=== PATIENT | female | born 1975 | race Caucasian/White ===

== ENCOUNTER 2017-11-30 06:24 | Inpatient (IN) | payer OTHER ==
[~2017-11-30] VITALS: Ht 165.1 cm; Wt 81.6 kg
--- NOTE | ~2017-11-30 | CON ---
[address] [address] CONSULTATION Name: SCOTTY QUINTANILLA Room: [address] IN M.R.#: [id number] Admission: 11/30/17 Attend Phys: Ko Anguiano Discharge: Date of : 71 Report #: [id number] THIS REPORT FOR: //name// CC: ANGELIQUE physician/PCP Amadou Dewey DATE OF SERVICE: 12/08/2017 CHIEF COMPLAINT: Status post incision and drainage right dorsal lateral foot and amputation of right second digit for osteomyelitis. HISTORY OF PRESENT ILLNESS: She is doing well, has OT scheduled for this afternoon. She is weightbearing in a surgical shoe without the need for an assistive device. She is on parenteral cefazolin with good tolerance. Denies constitutional symptoms, has good appetite. Soft tissue cultures from recent incision and drainage surgery are pending with no organisms seen on the Gram stain. Noninvasive arterial Doppler from yesterday shows no significant arterial occlusive disease in either extremity. She has triphasic and biphasic waveforms noted throughout the right lower extremity without any elevated velocities to suggest stenosis. There are no new labs for review. PHYSICAL EXAMINATION: There is a significant decrease in inflammation to the right dorsal lateral foot surrounding the abscess drainage site. The wound has mostly fibrous slough within her intermittent areas of granulation. There is immediate periwound capillary refill. The inflammation is significantly decreased, but still persistent around the periphery. The second toe amputation site is well coapted with no inflammation. No popliteal adenopathy noted. No Homans or Wheat sign in either extremity. IMPRESSION: Status post incision and drainage right foot, status post amputation right second toe, uncontrolled type 2 diabetes mellitus with peripheral neuropathy, status post incision and drainage right wrist. PLAN: Continue daily wound care to include irrigation and packing the wound with Aquacel Ag, covered with ABDs, Kerlix and Edilson. She may ambulate in a surgical shoe for short distances and transfers. The patient to continue with PT and OT. By: 1237 1922Dfrancisco javier Sutton DPM /claudine
[~2017-11-30 06:24] MED LIST: ACETAMINOPHEN-1 EAC1 PO; ACTICIN 5% CREA60 G1 TOP; AUGMENTIN 875-1 EACH; BACTRIM DS TAB1 EACH PO; BACTROBAN22 GM TP; CEPHALEXIN 500500 M3 PO; DIFLUCAN150 MG PO; GLUCOPHAGE500 MG PO; HIBICLENS120 ML TP; HUMALOG100 UNIT/1 SUBQ; HYDROCODON-ACE1 EAC7 PO; HYDROCODONE-AP1 EAC6 PO; IBUPROFEN 800800 M1 PO; KEFLEX500 M1 PO; LANTUS SUBQ; LIDOCAINE VISC100 M1 SWISH&SPIT; NAPROSYN500 M1 PO; NOHOMEMEDICATIONS; NORCO 5-325 TA1 EACH PO; NORFLEX100 MG PO; NOVOLIN N; NOVOLIN R SUBQ; PENICILLIN V P500 MG PO; PENICILLIN VK250 MG PO; PENICILLIN VK500 MG PO; PREDNISONE 20 M20 MG PO; PROMETHAZINE-D120 ML PO; TERAZOL 320 GM VG; TRAMADOL 50 MG50 MG PO; ZPAK PO; ZYVOX600 MG PO
[2017-11-30 06:31] VITALS: BP 125/71
[2017-11-30 07:38] LABS: ABSOLUTE EOSINOPHILS 0.1 thou/uL (0.0-0.7); ABSOLUTE LYMPHOCYTES 1.3 thou/uL (0.8-5.3); ABSOLUTE MONOCYTES 1.2 thou/uL (0.0-1.2); ABSOLUTE NEUTROPHILS 9.5 thou/uL (1.6-8.1); BASOPHILS 0.3 %; EOSINOPHILS 0.4 %; HEMATOCRIT 34.3 % (37.0-47.0); HEMOGLOBIN 11.7 gm/dL (12.0-15.0); LYMPHOCYTES 10.5 %; MCH 29.5 pg (26.0-34.0); MCV 86.9 fL (80.0-100.0); MONOCYTES 10.2 %; MPV 9.2 fl. (7.2-11.1); NUCLEATED RBCS 0 /100WBC; PLATELET COUNT* 182 thou/uL (150-400); POLYS 78.6 %; RBC 3.95 mil/uL (4.20-5.00); RDW-CV 12.8 % (10.5-14.5); WBC 12.1 thou/uL (4.0-11.0)
[2017-11-30 07:46] LABS: CALCIUM 8.3 mg/dL (8.5-10.1); CREATININE 0.6 mg/dL (0.6-1.3); POTASSIUM 3.7 mmol/L (3.5-5.1)
[2017-11-30 07:51] LABS: ALBUMIN 2.5 g/dL (3.4-5.0); TOTAL BILIRUBIN 0.6 mg/dL (<0.1-1.0); TOTAL PROTEIN 7.1 g/dL (6.4-8.2)
--- NOTE | 2017-11-30 09:20 | NUR ---
[facility] NOTIFIED UPON PT RETURN FROM CT. PT CONNECTED TO BP AND PULSE OX MONITORS
[2017-11-30 09:47] VITALS: BP 127/75
[2017-11-30 10:05] VITALS: BP 123/74
[2017-11-30] MEDS ORDERED: NOVOLIN N (13:11)
--- NOTE | 2017-11-30 13:35 | NUR ---
WOUND CARE NOTE: CONSULT RECEIVED FOR RIGHT SECOND TOE WOUND. PATIENT KNOWN TO ME FROM PREVIOUS HOSPITAL STAY WITH RIGHT GREAT TOE WOUND. INCISION TO RIGHT MEDIAL SIDE OF FOOT IS WELL HEALED. PATIENT NOW HAS ULCERATIONS TO HER RIGHT SECOND TOE. PLANTAR SURFACE ULCERATION MEASURES 0.2X0.5X0.3 WITH UNDERMINING CIRCUMFIRENTIALLY 0.3CM. MEDIAL WOUND MEASURES 1X0.5X0.2 WITH A YELLOW MOIST WOUND BED. FOUL ODOR NOTED FROM WOUNDS. VIV-WOUND IS EDEMATOUS AND INFLAMMED. PATIENT STATES THE REDNESS LOOKS BETTER TO HER AND THAT THE WOUNDS USED TO BE BLISTERS, STATES SHE TOOK A SHOWER AND THE BLISTERS RUPTURED. CLEANSED WOUNDS WITH WOUND CLEANSER, OBTAINED CULTURES AND PHOTOGRAPHS. APPLIED AQUACEL AG TO WOUND BEDS AND SECURED WITH 4X4. XRAYS SUGGEST POSSIBLE OSTEO. PALPABLE PEDAL PULSE NOTED AND HAIR GROWTH NOTED. THERE IS ALSO SOME DISCOLORATION TO THE LATERAL ASPECT OF HER FOOT, THIS WAS PHOTOGRAPHED TOO. EDUCATED PATIENT ON DRESSING SELECTION, COMMUNICTED UNDERSTANDING. RECOMMEND HEEL WEIGHT BEARING ONLY ENCOURAGE GOOD NUTRITION/HYDRATION TIGHT BLOOD GLUCOSE CONTROL
[2017-11-30 15:00] VITALS: BP 120/61
--- NOTE | 2017-11-30 18:16 | NUR ---
PATIENT ADM TO FLOOR AT 1000, REPORT FROM [facility]. A&OX4, ROOM AIR, IV LEFT AC FLUIDS INFUSSING. UP WITH ASSISTX1, UNSTEADY GAIT. C/O PAIN TO RIGHT HAND, LEFT HIP, AND RIGHT FOOT. MINIMAL TO PARTIAL RELIEF WITH MEDICATION. PATIENT CHLOSTROPHOBIC, UNABLE TO DO MRI OF RIGHT HAND TODAY. MEDICATION ON BOARD FOR TOMORROW MORNING, ALSO SCHEDULED A MRI OF LEFT HIP. UA NEEDED. NO OTHER CONCERNS AT THIS TIME. APPROPRIATE AND COOPORATIVE WITH CARE.
[2017-11-30 21:50] VITALS: BP 120/61
[2017-11-30] MEDS ORDERED: NOVOLIN N100 UNIT/3 SUBQ (22:00)
[2017-11-30 22:04] LABS: URINE BILIRUBIN NEGATIVE (Negative); URINE BLOOD TRACE (Negative); URINE CLARITY CLEAR; URINE COLOR YELLOW; URINE GLUCOSE-RANDOM 3+ (Negative); URINE LEUKOCYTES NEGATIVE (Negative); URINE NITRITE NEGATIVE (Negative); URINE PROTEIN NEGATIVE (Negative); URINE UROBILINOGEN 0.2 E.U./dl (0.2-1.0)
[2017-11-30 22:05] LABS: URINE KETONES 3+ (Negative)
[2017-11-30 22:15] LABS: SQUAMOUS 0-3 Few /LPF (0-3)
[2017-11-30 22:18] LABS: URINE WBC 0-5 Rare /HPF (0-5)
[2017-11-30 22:19] LABS: BACTERIA 1-9 Few /HPF (None Seen); CASTS None Seen /LPF (None Seen); CRYSTALS None Seen /LPF (None Seen); URINE RBC 3-10 Few /HPF (0-2); YEAST Present (None Seen)
[2017-11-30 22:59] VITALS: BP 128/64
[2017-12-01 04:07] LABS: HEMATOCRIT 32.6 % (37.0-47.0); HEMOGLOBIN 11.1 gm/dL (12.0-15.0); MCH 29.6 pg (26.0-34.0); MCV 87.1 fL (80.0-100.0); MPV 9.3 fl. (7.2-11.1); RBC 3.74 mil/uL (4.20-5.00); RDW-CV 13.1 % (10.5-14.5); WBC 11.3 thou/uL (4.0-11.0)
[2017-12-01 04:22] LABS: ANION GAP 9 mmol/L (7-16); BUN 11 mg/dL (7-18); CALCIUM 8.2 mg/dL (8.5-10.1); CHLORIDE 101 mmol/L (98-107); CO2 22 mmol/L (21-32); CREATININE 0.6 mg/dL (0.6-1.3); GLUCOSE 215 mg/dL (70-99); POTASSIUM 3.6 mmol/L (3.5-5.1); SODIUM 132 mmol/L (136-145)
[2017-12-01 04:40] LABS: CHOLESTEROL 118 mg/dL (<200); HDL CHOLESTEROL 31 mg/dL (>40); LDL CHOLESTEROL 68 mg/dL (<100); TC:HDL 3.8 Ratio (Not establshd); TRIGLYCERIDE 98 mg/dL (<150); VLDL 20 mg/dL (<40)
[2017-12-01 05:04] LABS: SERUM ASSESSMENT Clear
--- NOTE | 2017-12-01 05:19 | NUR ---
ASSESSMENT COMPLETE. PT SLEPT THROUGH THE NIGHT. IV FLUIDS INFUSING. PAIN MEDICATION GIVEN ONCE. PT HAS SURGERY WITH DR HEATON FOR AMPUTATION OF RIGHT SECOND TOE, AND MRI OF RIGHT WRIST/LEFT HIP TODAY. PRN ATIVAN ORDERED FOR MRI. PT GIVEN IV VANC AND CEFEPIME. CENSENTS COMPLETED IN CHART. PT IS FALL RISK, BED ALARM ON. PT IS UP STANDBY ASSIST WITH WALKER TO BATHROOM. SEE ASSESSMENT AND VITALS FOR OTHER DETAILS. CALL LIGHT WITHIN REACH, WILL CONTINUE PLAN OF CARE
[2017-12-01 08:30] VITALS: BP 133/66
--- NOTE | 2017-12-01 09:56 | NUR ---
Pt lives at home with friend. Pt continues to be Medicaid Pending. Pt out of room at time; SW to continue to follow to assist with safe dc planning and provide any resources or referrals if needed.
--- NOTE | 2017-12-01 14:08 | NUR ---
Nutrition: Consult for "DM." Pt has h/o uncontrolled DMII. Admitted with osteomyelitis of Lt foot, Lt partial foot/toe amputation. RX: vanc, insulin. Labs: BG 200s, alb 2.5, prealb 7.8. Pt is NPO currently. She was sound asleep at time of visit, 13:45. RD left DM diet handouts on bedside table. Has RD contact info for pt to call with questions. Consider Mild risk at this time. RD WILL ORDER LIN B.I.D. FOR WOUND HEALING. GOALS: TIGHT BG CONTROL, GOOD PROTEIN INTAKE, MVI FOR WOUND HEALING.
[2017-12-01 14:11] VITALS: BP 125/67
[2017-12-01 14:15] VITALS: BP 120/61
--- NOTE | 2017-12-01 17:28 | EKG ---
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1975 Requested By: Paulo Sutton Order Number: [id number] Mera MD: Sami Benz Measurements Intervals [place] Rate: 109 P: 40 [place]: 140 QRS: 66 QRSD: 92 T: 20 QT: 327 QTc: 441 Interpretive Statements Sinus tachycardia Borderline low voltage, extremity leads Baseline wander in lead(s) II,III,aVR,aVL,aVF Compared to ECG 10/24/2016 08:30:04 Sinus rate has increased Electronically Signed On 12-01-2017 17:28:02 CDT by Sami Benz [email or web address] <ELECTRONICALLY SIGNED> By: Sami Benz MD, FAC 12/01/17 1728 0839 0839 Sami Benz MD, [facility] /EPI
--- NOTE | 2017-12-01 19:34 | NUR ---
PATIENT A&OX4, LETHARGIC. RECIEVED IV PAIN MEDICATION PRIOR TO SHIFT CHANGE, NOTED TO BE INCREASINGLY SLEEPY TRHOUGH MORNING. LISSETH TO HAVE MRI THIS AM OF RT WRIST AND LT HIP, C/O SEVERE CHLOSTROPHOBIA, PHYSICIAN AWARE AND OKAY WITH ATIVAN ADMINISTRATION. POST MEDICATION ADMINISTRATION, ABLE TO TRANSFER TO W/C TO RADIOLOGY, UNABLE TO WAKEN ENOUGHT TO RIDE W/C UP TO ROOM, TRANSFERED BACK TO ROOM VIA CART. LETHARGIC AND HARD TO AROSE POST SURGERY. RUNNING SLIGHT FEVER, MINIMAL RELEIF WITH MEDICATION. NO FURTHER PAIN MEDICATION GIVEN. UP WITH ASSISTX1, WEAK AND UNSTEADY. NO OTHER CONCERNS AT THIS TIME. APPROPRIATE AND COOPORATIVE WITH CARE.
[2017-12-01 20:00] VITALS: BP 99/55
[2017-12-02] VITALS: BP 109/61
[2017-12-02 02:11] LABS: GLYCOHEMOGLOBIN (HGB A1C) 12.9 % (4.8-5.6)
[2017-12-02 04:00] VITALS: BP 129/66
[2017-12-02 05:04] LABS: ABSOLUTE LYMPHOCYTES 1.1 thou/uL (0.8-5.3); ABSOLUTE MONOCYTES 0.9 thou/uL (0.0-1.2); ABSOLUTE NEUTROPHILS 8.5 thou/uL (1.6-8.1); BASOPHILS 0.2 %; EOSINOPHILS 0.4 %; HEMATOCRIT 29.7 % (37.0-47.0); HEMOGLOBIN 10.3 gm/dL (12.0-15.0); LYMPHOCYTES 10.5 %; MCHC 34.7 g/dL (28.0-37.0); MCV 86.4 fL (80.0-100.0); MONOCYTES 8.7 %; NUCLEATED RBCS 0 /100WBC; PLATELET COUNT* 220 thou/uL (150-400); POLYS 80.2 %; RBC 3.44 mil/uL (4.20-5.00); RDW-CV 12.9 % (10.5-14.5); WBC 10.6 thou/uL (4.0-11.0)
[2017-12-02 05:23] LABS: CALCIUM 8.1 mg/dL (8.5-10.1); CREATININE 0.6 mg/dL (0.6-1.3); POTASSIUM 3.5 mmol/L (3.5-5.1)
--- NOTE | 2017-12-02 05:53 | NUR ---
PT SLEPT THIS SHIFT. AWAKENS WITH CARES AND WHEN NEEDING TO GET UP TO GO TO THE BATHROOM. MOANING AND WHIMPERING CO PAIN R WRIST, L HIP AND R FOOT WHEN AWAKE. HS ACCUCHECK 199, INSULIN GIVEN ORDERED. R FOOT BULKY DRSG. UP WITH WALKER WBAT. HYDROCODONE 1 TAB GIVEN ONCE THIS SHIFT FOR PAIN. AM LAB DRAWN. IVF INFUSING PER PUMP LAC, ABX GIVEN ORDERED. ABLE TO USE CALL LITE AND MAKE NEEDS KNOWN. BED ALARM ON FOR SAFETY.
[2017-12-02 08:00] VITALS: BP 126/70
--- NOTE | 2017-12-02 11:50 | CON ---
[address] [address] CONSULTATION Name: SCOTTY QUINTANILLA Room: [address] IN M.R.#: [id number] Admission: 11/30/17 Attend Phys: Ko Anguiano Discharge: Date of : 71 Report #: [id number] THIS REPORT FOR: //name// CC: ANGELIQUE physician/PCP Amadou Dewey DATE OF SERVICE: 11/30/2017 INFECTIOUS DISEASE CONSULTATION ATTENDING PHYSICIAN: Dr. Dewey. REASON FOR EVALUATION: Deep infection involving the right second toe, suspected osteomyelitis in the setting of uncontrolled diabetes mellitus, previous great toe amputation on the right. HISTORY OF PRESENT ILLNESS: Chart reviewed, patient examined. This is a 42-year-old familiar with having seen in the last couple of years. At that point, she was diagnosed with osteomyelitis, underwent great toe amputation. It is difficult to ascertain details of her history. She did present to the Emergency Room with several complaints including having injured her right second toe. This was complicated by increasing inflammation. I believe she does have a degree of peripheral neuropathy, also right hip pain of 4-5 days' duration and again, I do not have details about any antecedent injury, and left wrist pain perhaps as a result of trying to raise herself up. She has been undergoing evaluation including imaging, which showed several abnormalities. Sed rate was elevated at 93. She is scheduled to undergo right second toe amputation. She was empirically started on antimicrobial therapy with ertapenem, ceftriaxone and vancomycin. ALLERGIES: METRONIDAZOLE. CURRENT MEDICATIONS: Include insulin, enoxaparin, morphine, vancomycin, hydrocodone, cefepime. PAST MEDICAL HISTORY: As noted above. No diabetes mellitus, has been quite brittle. SOCIAL HISTORY: Smokes 1/2 pack a day for 20 years total. No ethanol. No illicit drug use. FAMILY HISTORY: Noncontributory. REVIEW OF SYSTEMS: Not reliably obtained. PHYSICAL EXAMINATION: [place] [address] CONSULTATION Name: JESSICA QUINTANILLAJasmeet Corrales Room: [address] IN [facility]#: [id number] Admission: 11/30/17 Attend Phys: Ko Anguiano Discharge: Date of : 71 Report #: [id number] GENERAL: She is quite somnolent, arouses only partially and briefly mumbles, apparently had received recent anxiolytic, appears chronically ill, undernourished. VITAL SIGNS: T-max 100.4, more recently 98.2; pulse 94, respirations 17, blood pressure 120/61. SKIN: Warm. No rashes. NECK: Apparently is supple. LUNGS: Diminished breath sounds. HEART: Regular. Borderline tachycardic. I do not appreciate murmur. ABDOMEN: Soft, nontender, nondistended. There are no peritoneal signs. EXTREMITIES: Right foot, there is significant discoloration involving the second toe. There is a hemorrhagic component. There is moderate degree of inflammation. It is difficult to ascertain the level of pain due to her encephalopathy. GENITOURINARY: Deferred. RECTAL: Deferred. LABORATORY DATA: Initial CBC: White count of 12.1, H and H 11.7 and 34.3, platelets of 182. Electrolytes: Sodium 127, potassium 3.7, chloride 95, bicarbonate is 25, BUN and creatinine 9 and 0.6, anion gap of 7. Blood glucose of 400 and albumin of 2.5, total protein 7.1. Estimated GFR 109, otherwise LFTs unremarkable. Lactic acid 0.7. Sed rate of 93. CRP elevated at 260.41. Negative qualitative UCG. Prealbumin is 7.8. Urinalysis 0-5 white cells. There is yeast present. Blood cultures sterile thus far. MRI of the hip is notable for high-grade tear of the left gluteus medius tendon, bilateral inguinal adenopathy. 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 MRI of the foot, cellulitis, flexor extensor tenosynovitis, possible myositis involving the intramuscular aspect of the hand, no evidence of osteo. ASSESSMENT: Suspected deep infection, possible osteomyelitis involving the right second toe in a patient with uncontrolled diabetes mellitus. Noted plans to proceed with toe amputation. I think this is not unreasonable. We will continue empiric antimicrobial therapy. I think we can pare this down, include vancomycin and potentially cefepime at this point, single dose of fluconazole given the yeast in the urine as well. She remains quite tenuous and concerned about possible nosocomial related infectious complications. We will have to monitor expectantly including a concern about pneumonitis in particular. <ELECTRONICALLY SIGNED> By: Wolfgang Rivera MD 12/02/17 1150 1536 0158Joezra Rivera MD /nt
--- NOTE | 2017-12-02 14:27 | OP ---
[address] [address] OPERATIVE REPORT Name: SCOTTY QUINTANILLA Room: [address] IN .R.#: [id number] Admission: 11/30/17 Attend Phys: Ko Anguiano Discharge: Date of : 71 Report #: [id number] THIS REPORT FOR: //name// CC: ANGELIQUE physician/PCP Amadou Dewey DATE OF SERVICE: 12/02/2017 PREOPERATIVE DIAGNOSIS: Right dorsal wrist tenosynovitis of the fourth, fifth compartment area. 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 SURGERY PERFORMED: Excision and debridement of the fourth and fifth dorsal wrist extensor compartments and arthrotomy of the right wrist joint with lavage. The debridement area consisted excisionally 4 x 6 cm of the tendon. SURGEON: Michele Muller DO. SALES ACCOUNT ASSOCIATE: Dr. Douglas. SECOND CONSTRUCTION MILLWRIGHT: Dr. Harper. ANESTHESIA: General anesthetic. INDICATIONS The patient has been on scheduled antibiotics. She has John drain to the wrist joint dorsally. No complications otherwise. GROSS FINDINGS: Prior to surgery, this patient had had previous toe amputated on the foot secondary to osteomyelitis by Dr. Sutton and at this time she also complained of wrist joint that was painful on the right side. MRI correlated with definitely tenosynovitis. Intraoperative findings correlated with purulence in the wrist joint itself on the right side and extensor tenosynovitis fourth and fifth compartments. ESTIMATED BLOOD LOSS: Approximately 20 mL. DRAIN: The patient has John drain as stated. COMPLICATIONS: No other complications. SPECIMEN: No other specimens except cultures. SURGERY IN DETAIL: This pleasant patient was taken to the operating room and placed on table, given general anesthetic. The patient [place] [address] OPERATIVE REPORT Name: SCOTTY QUINTANILLA Room: [address] IN [facility]#: [id number] Admission: 11/30/17 Attend Phys: Ko Anguiano Discharge: Date of : 71 Report #: [id number] tourniquet placed on the arm, but it was not needed. Chlorhexidine prep and sterile draping was done for the right wrist. Timeout was called and verified. Surgical dorsal incision longitudinal was made over the wrist joint extending to the extensor tendons distally with a 10 blade scalpel through skin and subcutaneous tissues. The fourth compartment was opened up with scissors technique. Extensor tendons demonstrated a lot of synovitis there that was all excised. The fifth compartment was opened up as well, some synovitis small in nature was noted and that was removed and irrigated as well. At this point in time, the wrist joint itself felt very spongy and so we elected to aspirate the wrist joint; pus came out of the wrist joint, so a dorsal arthrotomy was made. The wrist joint had a copious amount of pus within it. It was cultured and then a significant 3000 mL lavage was done to the wrist joint. The patient did have exam consistent with closure of the capsule. Capsule was closed with Monocryl 3-0. A drain was placed in the dorsal wrist compartment. Extensor compartment tissues then were closed with 3-0 Monocryl and running 3-0 nylon to the skin. Xeroform, 4 x 4s, bulky hand dressing to the right wrist was applied, transferred off table, taken to recovery in stable condition. I attest I was present for all critical aspects of surgery. Needle, instrument, and sponge counts correct. <ELECTRONICALLY SIGNED> By: Michele Muller DO 12/02/17 1427 1404 [id number] Muller DO /nt
[2017-12-02 16:36] VITALS: BP 130/70
[2017-12-03] VITALS: BP 121/69
[2017-12-03 04:52] LABS: ABSOLUTE EOSINOPHILS 0.1 thou/uL (0.0-0.7); ABSOLUTE LYMPHOCYTES 1.4 thou/uL (0.8-5.3); ABSOLUTE MONOCYTES 0.9 thou/uL (0.0-1.2); ABSOLUTE NEUTROPHILS 6.9 thou/uL (1.6-8.1); BASOPHILS 0.3 %; EOSINOPHILS 0.7 %; HEMATOCRIT 27.8 % (37.0-47.0); HEMOGLOBIN 9.6 gm/dL (12.0-15.0); LYMPHOCYTES 15.3 %; MCH 29.8 pg (26.0-34.0); MCHC 34.4 g/dL (28.0-37.0); MCV 86.5 fL (80.0-100.0); MONOCYTES 9.7 %; MPV 8.8 fl. (7.2-11.1); NUCLEATED RBCS 0 /100WBC; PLATELET COUNT* 240 thou/uL (150-400); RBC 3.21 mil/uL (4.20-5.00); WBC 9.4 thou/uL (4.0-11.0)
[2017-12-03 06:04] LABS: CALCIUM 7.9 mg/dL (8.5-10.1); CREATININE 0.6 mg/dL (0.6-1.3); POTASSIUM 3.5 mmol/L (3.5-5.1)
--- NOTE | 2017-12-03 07:41 | NUR ---
PT SLEPT OVERNIGHT, AWAKENS WITH CARES. HS ACCUCHECK 138, INSULIN GIVEN ORDERED. HYDROCODONE AND MORPHINE GIVEN PRN FOR CO RWRIST AND R FOOT PAIN. EVAN WRAP BULKY DRESSINGS TO R WRIST AND R FOOT. UP WITH WALKER AND ASSIST TO BR TO VOID. AM LABS. LFA IVF INFUSING PER PUMP, ABX GIVEN ORDERED. VANC TROUGH LOW AND PHARM ADJUSTED VANC DOSE. TEMP MAX 100.6, TYLENOL GIVEN. ABLE TO USE CALL LITE AND MAKE NEEDS KNOWN. ROOM AIR SAT 95%.
[2017-12-03 08:00] VITALS: BP 112/56
[2017-12-03 12:00] VITALS: BP 119/67
--- NOTE | 2017-12-03 16:08 | NUR ---
SHIFT NOTE - PT ASKING FOR PAIN MEDICATIONS MULTIPLE TIMES THIS SHIFT. OK TO GIVE. IV INFUSING NS @ 50ML/HR IN L FA. FAMILY MEMBER AT BEDSIDE THIS SHIFT. CHANGED RIGHT FOOT DRESSING AT 1600 THIS SHIFT. WILL CONTINUE TO MONITOR.
[2017-12-03 16:42] VITALS: BP 114/66
[2017-12-03 20:30] VITALS: BP 133/67
[2017-12-04] VITALS: BP 103/50
[2017-12-04 04:00] VITALS: BP 125/59
--- NOTE | 2017-12-04 05:37 | NUR ---
UP WITH 1 ASSIST AND WALKER TO BATHROOM. ALERT AND ORIENTED X4. DRESSING RIGHT WRIST CLEAN DRY AND INTACT. EDEMA NOTED IN RIGHT HAND FINGERS BUT FINGERS WARM AND PINK WITH GOOD CAPILLARY REFILL. RIGHT HAND ELEVATED ON PILLOW. DRESSING RIGHT FOOT DRY AND INTACT WITH TOES WARM AND PINK WITH GOOD CAPPILLARY REFILL. 0400 V/S SHOWED A TEMPATURE OF 101.9. MESSAGE LEFT FOR CONTINUES ON IV ANTIBIODICS. BED ALARM ON AND CALL LIGHT WITHIN REACH.
[2017-12-04 07:40] VITALS: BP 103/59
[2017-12-04 16:00] VITALS: BP 121/67
--- NOTE | 2017-12-04 18:17 | NUR ---
PATIENT A&OX4, ROOM AIR, IV LEFT FOREARM, POSSITIONAL, FLUIDS INFUSSING. UP WITH ASSISTX1 WB TOLERATED. C/O PIAN TO LT HIP, RIGHT WRIST, AND RIGHT FOOT. RIGHT WRIST PIAN MORE PREVELANT THAN REST. RELIEF WITH MEDICATION. PATIENT FOUND SLEEPING IN ROOM AFTER MEDICATION GIVEN. SHOWERED TODAY. NO OTHER CONCERNS AT THIS TIME. APPROPRIATE AND COOPORATIVE WITH CARE.
[2017-12-04 19:45] VITALS: BP 118/62
[2017-12-05 07:30] VITALS: BP 115/62
--- NOTE | 2017-12-05 07:45 | NUR ---
RECEIVED REPORT AND ASSUMED CARE AT 1900. VSS. ASSESSMENT COMPLETED CHARTED. PT REPORTED PAIN IN R ARM AND R FOOT. PRN MEDICATION ADMIN PER ORDERS, ICE PACKS APPLIED. MEDICATION ADMIN PER EMAR. DISCUSSED PLAN OF CARE WITH PT, VERBALIZED UNDERSTANDING. PT UP WITH ASSIST WITH BRP. ON RA. NO ACUTE CHANGES THROUGH THE NIGHT, HOURLY ROUNDING COMPLETED AND ALL NEEDS MET. NURSING WILL CONTINUE TO MONITOR
[2017-12-05 16:00] VITALS: BP 137/75
--- NOTE | 2017-12-05 17:00 | NUR ---
PATEINT A&OX4, ROOM AIR, IV LEFT FOREARM FLUIDS INFUSSING. UP STAND BY WITH ASSISTX1. C/O PAIN RT HAND, RT FOOT, AND LT HIP. RELIEF WITH MEDICATION. PT FOUND SLEEPING AFTER MEDICATION ADMINISTRATION. DRSG TO RT HAND AND RT FOOT CHANGED. NO OTHER CONCERNS AT THIS TIME. APPROPRIATE AND COOPORATIVEI WITH CARE.
[2017-12-06] VITALS: BP 139/62
--- NOTE | 2017-12-06 06:40 | NUR ---
PT RECEIVED PO PAIN MED AT HS FOR CO R WRIST AND R FOOT PAIN WITH GOOD RESULT. SLEPT FAIRLY WELL OVERNIGHT. UP WITH SBA AND SURGICAL SHOE TO BR TO VOID. DRSG TO R SIDE OF R FOOT, R TOE AND R WRIST. LFA IVF INFUSING PER PUMP, ABX GIVEN ORDERED. HS ACCUCHECK 152, INSULIN GIVEN ORDERED. CALL LITE IN EASY REACH. NO LABS THIS MORNING.
[2017-12-06 08:00] VITALS: BP 138/68
--- NOTE | 2017-12-06 14:47 | NUR ---
CELL LEAD SPOKE TO THE PATIENT TO DISCUSS DISCHARGE PLANNING NEEDS. PATIENT INFORMS THAT SHE IS NOT SURE WHAT SHE WILL NEED AT D/C, BUT PROBABLY ASSISTANCE WITH PAYIING FOR MEDICATIONS. INFORMED PATIENT THAT CM WILL ATTEMPT TO ASSIST WITH THIS AT D/C. CM WILL REMAIN AVAILABLE TO ASSIST AND FOLLOW NEEDED.
[2017-12-06 15:58] VITALS: BP 110/60
[2017-12-06 16:07] VITALS: BP 126/70
--- NOTE | 2017-12-06 16:20 | NUR ---
PT RESTING IN BED THROUGHOUT SHIFT. PAIN WELL CONTROLLED WITH PO MEDS. PT CALM AND COOPERATIVE. IVF INFUSING. NPO THIS AFTERNOON FOR SCHEDULED I&D THIS EVENING.
--- NOTE | 2017-12-06 17:45 | NUR ---
PT TO OR VIA BED
[2017-12-06 20:25] VITALS: BP 135/68
--- NOTE | 2017-12-06 20:25 | NUR ---
PT RETURN FROM PACU TO FLOOR PER BED ACCOMPANIED BY PACU STAFF. AOX4, PLEASANT, DENIES NEEDS AT THIS TIME. R FOOT TOES PINK AND WARM, ABLE TO WIGGLE TOES. LAC SL, TO BE PLACED ON PUMP. PT STATES SHE IS HUNGRY AND WAITING FOR FRIENDS TO ARRIVE WITH FOOD. BULKY DRSG TO R FOOT CDI, EVAN WRAP DRSG CDI TO R WRIST. WILL CONTINUE TO MONITOR AND PROVIDE CARES NEEDED.
[2017-12-07] VITALS: BP 132/72
[2017-12-07 04:00] VITALS: BP 138/73
--- NOTE | 2017-12-07 06:54 | NUR ---
PT SLEPT WELL OVERNIGHT. PO PAIN MED GIVEN FOR CO R WRIST AND R FOOT PAIN WITH GOOD RESULT. UP WITH SURGICAL SHOE, AND SBA TO BR TO VOID. EVAN WRAP DRSG CDI TO R WRIST AND R FOOT. ABX GIVEN ORDERED. VSS. NO LABS THIS MORNING. ABLE TO USE CALL LITE AND MAKE NEEDS KNOWN.
[2017-12-07 08:00] VITALS: BP 140/73
--- NOTE | 2017-12-07 10:22 | NUR ---
CONSUOLTED FOR IV ACCESS FOR PT. LEFT UPPER ARM ASSESSED WITH ULTASOUND 2 ATTEMPTS MADE AT STARTING PIV WITH ULTRASOUND. BOTH UNABLE TO THREAD. ALL VEINS NOTED WERE 1.5-2 CM DEEP. RIGHT UPPER ARM ASSESED WITH ULTRASOUND RIGHT BASILIC IDENTIFIED AND NOTED TO BE WIDLEY PATENT AT 1.5CM DEEP. 8CM MDLINE PLACED WITH OUT DIFFICULTY. GOOD BRISK BLOOD RETUN NOTED AND FLUSHED WITH EASE. LINE SECURED AND RELEASED FOR USE TO PRIMARY RN.
[2017-12-07 15:57] VITALS: BP 132/67
--- NOTE | 2017-12-07 16:30 | NUR ---
PATIENT A&OX4, RA, NEW IV PLACED IN RIGHT UPPER ARM, 8CM FLUIDS INFUSSING WITH ABX. UP WITH ASSISTX1, STEADY GIAT. C/O PIAN, LEFT HIP, RIGHT HAND, RIGHT FOOT. PARTIAL TO FULL RELIEF WITH MEDICATION. BULK DRSG TO LEFT FOOT, CHANGED TODAY BY PHYSICIAN, I&D YETERDAY. NO OTHER CONCERNS AT THIS TIME. APPROPRAITE AND COOPORATIVE WITH CARE.
[2017-12-08 04:00] VITALS: BP 125/73
--- NOTE | 2017-12-08 07:29 | NUR ---
PT SLEPT WELL OVERNIGHT, RECEIVING PAIN PILLS AT HS FOR CO RWRIST AND R FOOT PAIN. UP WITH SURGICAL SHOE AD ROSALBA TO BR TO VOID. ASTON MIDLINE ABX GIVEN ORDERED. PT STATES IV WAS BEEPING AND DRIVING HER CRAZY AND SHE TURNED IVF OFF ADN DOES NOT WANT THEM RESTARTED. NO LABS DRAWN THIS MORNING. HS ACCUCHECK 105, INSULIN GIVEN ORDERED. ABLE TO USE CALL LITE AND MAKE NEEDS KNOWN.
[2017-12-08 07:55] VITALS: BP 125/62
--- NOTE | 2017-12-08 11:08 | PATH ---
[address] [address] PATHOLOGY RPT PROCEDURE Name: AVA QUINTANILLA Room: [address] IN M.R.#: [id number] Admission: 11/30/17 Date of : 71 Discharge: Report #: [id number] Path Case #: [id number] [facility] Accession Number: [id number] . 01 Material submitted: . RIGHT SECOND TOE . 01 Clinician provided ICD-10: L03.031 . 01 Clinical history: . Osteomyelitis right second toe . 02 Diagnosis: Right second toe: - Benign toe with extensive acute inflammation of soft tissues and osteomyelitis of phalangeal bones, with proximal disarticulation margin free of osteomyelitis. . (JUVENTINO:vjm;12/03/2017) AGA/12/03/2017 . 02 Electronically signed: . Ricardo Cross MD, Pathologist NPI- [id number] . 01 Gross description: . The specimen is received in formalin, labeled "Ava Quintanilla, right second toe". Received is an amputated digit measuring 7.0 x 2.6 x 2.4 cm in greatest dimensions. The bone margin is smooth and concave in appearance, consistent with disarticulation. The bone and soft tissue margins are inked black. The nail is absent. The distal aspect of the specimen displays a poorly circumscribed, irregular in contour and pale steinberg to dusky hernández-brown lesion measuring 2.1 x 1.4 cm, which is 1.7 cm from the closest skin margin, which is surrounded by skin slippage. A full-thickness longitudinal cross-section is submitted in cassettes A1 through A3, proximal to distal aspects, following decalcification. (CAA; 12/02/2017) QAC/QAC . 02 Pathologist provided ICD-10: M86.8X7, M79.9 . 02 CPT . 206516, 424610 Specimen Comment: A courtesy copy of this report has been sent to Specimen Comment: [phone], . Specimen Comment: Report sent to / [place] [address] PATHOLOGY RPT PROCEDURE Name: AVA QUINTANILLA Room: [address] IN [facility].#: [id number] Admission: 11/30/17 Date of : 71 Discharge: Report #: [id number] Path Case #: [id number] [facility]formed at: [facility] [place] [address], [place], [place] [id number] MD Horacio Hussein MD Phone: [phone] Performed at: 02 [facility] [address], [place], [place] [id number] MD Ricardo Cross MD Phone: [phone]
--- NOTE | 2017-12-08 12:50 | CON ---
[address] [address] CONSULTATION Name: SCOTTY QUINTANILLA Room: [address] IN M.R.#: [id number] Admission: 11/30/17 Attend Phys: Ko Anguiano Discharge: Date of : 71 Report #: [id number] THIS REPORT FOR: //name// CC: ANGELIQUE physician/PCP Amadou Dewey DATE OF SERVICE: 12/07/2017 CHIEF COMPLAINT: Status post incision and drainage, right foot x 1 day. She had an abscess to the dorsal lateral aspect of the right foot of unknown etiology. I drained it last night and expressed roughly 5 mL of purulence and cultured the soft tissue. The culture is pending. She previously grew group B Streptococcus and oxacillin-sensitive Staph aureus from the right second toe with osteomyelitis. She is on parenteral cefazolin 2 grams IV q. 8 hours. She had a noninvasive arterial Doppler performed this morning, results not available. She is resting comfortably, denies right foot pain. She has some postoperative pain to the right wrist. She says the hip pain is decreased. She denies fevers, chills, nausea or malaise. PHYSICAL EXAMINATION: Temperature 98.2, pulse 95, respirations 20, blood pressure 140/73. Incision and drainage site to right dorsolateral foot has decreased erythema and inflammation. There is no pallor or cyanosis to the wound margins. The wound bed has a mixture of granulation and slough. The second toe amputation site is well coapted with no inflammation or dehiscence. No right popliteal adenopathy. No Homans' or Wheat sign bilaterally. IMPRESSION: Status post incision and drainage right foot, status post amputation right second toe for osteomyelitis. PLAN: I cleansed the abscess site and dried it. It was packed with Aquacel Ag and wrapped with ABDs, Kerlix and Edilson bandage. The patient may be partially weightbearing in surgical shoe with assistive device as tolerated. Awaiting arterial Doppler results. <ELECTRONICALLY SIGNED> By: Paulo Sutton DPM 12/08/17 1250 [id number] [id number] Sutton DPM /nt
--- NOTE | 2017-12-08 12:50 | CON ---
[address] [address] CONSULTATION Name: SCOTTY QUINTANILLA Room: [address] IN M.R.#: [id number] Admission: 11/30/17 Attend Phys: Ko Anguiano Discharge: Date of : 71 Report #: [id number] THIS REPORT FOR: //name// CC: ANGELIQUE physician/PCP Amadou Dewey DATE OF SERVICE: 12/03/2017 CHIEF COMPLAINT: Status post amputation, right second toe at MTP joint with primary closure. Surgical pathology is pending. Surgical cultures growing gram-positive cocci, kind of preoperative cultures grew group B streptococcus. She is on parenteral vancomycin, cefepime and ertapenem. She had aspiration of the right wrist yesterday, culture pending. LABORATORY DATA: WBC 9.4, RBC 3.21, hemoglobin 9.6, hematocrit 27.8, platelets 240. BUN 14, creatinine 0.6, glucose 101. PHYSICAL EXAMINATION: The incision is well approximated without inflammation, drainage, necrosis or cardinal signs of infection. There is no pallor, cyanosis or vascular embarrassment. There was some residual inflammation and bruising to the right dorsolateral mid foot with no open lesion. There is no underlying fluctuance or crepitation. She has a palpable dorsalis pedis and posterior tibial pulses to the right foot. IMPRESSION: Status post amputation, right second toe with osteomyelitis. PLAN: The incision was cleansed and dried and dressed with Aquacel Ag Foam and Kerlix gauze. The patient may ambulate in surgical shoe as tolerated. <ELECTRONICALLY SIGNED> By: Paulo Sutton DPM 12/08/17 1250 1620 [id number] javier Sutton DPM /nt
--- NOTE | 2017-12-08 12:50 | CON ---
[address] [address] CONSULTATION Name: SCOTTY QUINTANILLA Room: [address] IN M.R.#: [id number] Admission: 11/30/17 Attend Phys: Ko Anguiano Discharge: Date of : 71 Report #: [id number] THIS REPORT FOR: //name// CC: ANGELIQUE physician/PCP Amadou Dewey DATE OF SERVICE: 12/04/2017 CHIEF COMPLAINT: Status post amputation, right second toe for osteomyelitis. Surgical soft tissue cultures grew group B streptococcus and methicillin-sensitive Staphylococcus aureus. She had incision and drainage of right wrist and tendon debridement growing group B strep. She had a temperature this morning of 101.9, she is currently afebrile at 99.2. PHYSICAL EXAMINATION: Surgical incision is well coapted with no inflammation, drainage, necrosis or cardinal signs of infection. There is an area of erythema to the dorsal lateral right foot with a small blister. The blister is dry with no expressible fluid. The area is nonpainful to touch and slightly improved since yesterday. IMPRESSION: Osteomyelitis right second toe, septic arthritis right wrist. PLAN: Cleansed the incision and redressed with foam and gauze. We will monitor skin to the dorsal lateral aspect. The patient may develop a blister or a similar lesion amenable to incision and drainage in the near future. <ELECTRONICALLY SIGNED> By: Paulo Sutton DPM 12/08/17 0650 1130 Dickson Sutton DPM /claudine
--- NOTE | 2017-12-08 12:50 | OP ---
[facility] [address] [place] [address] OPERATIVE REPORT Name: SCOTTY QUINTANILLA Room: [address] IN [facility]#: [id number] Admission: 11/30/17 Attend Phys: Ko Anguiano Discharge: Date of : 71 Report #: [id number] THIS REPORT FOR: //name// CC: ANGELIQUE physician/PCP Amadou Dewey DATE OF SERVICE: 12/06/2017 SURGEON: Paulo Sutton DPM PREOPERATIVE DIAGNOSIS: Abscess, right foot. POSTOPERATIVE DIAGNOSIS: Abscess, right foot. PROCEDURE: Incision and drainage, right foot with tissue cultures. ANESTHESIA: MAC. INJECTABLES: 16 mL of a 1:1 mixture of 0.5% Marcaine plain and 1% lidocaine plain. ESTIMATED BLOOD LOSS: Minimal. HEMOSTASIS: Right ankle pneumatic tourniquet at 250 mmHg. COMPLICATIONS: None. DESCRIPTION OF PROCEDURE: The patient brought to the OR and placed on the table with induction of MAC anesthesia. A well-padded right ankle pneumatic tourniquet was placed. A local anesthetic block was given proximal to the surgical site. The extremity was prepped and draped aseptically. The foot was exsanguinated with inflation of the tourniquet. A #10 blade was used to create a longitudinal incision over the abscess and roughly, 5 mL of purulence was expressed. I submitted a portion of soft tissue from the wound margins for aerobic and anaerobic wound cultures. I debrided some fibrous material to the wound bed and freshened the skin margins. I flushed the wound with sterile saline and dried. Electrocautery was utilized for hemostasis. The wound was packed with Aquacel Ag, covered with Aquacel Ag, fluffs, ABDs, Kerlix and Edilson. Tourniquet was deflated with normal vascular return. The patient left the OR alert and oriented with no pain or complications noted. <ELECTRONICALLY SIGNED> By: Paulo Sutton DPM 12/08/17 1250 [id number] javier Sutton DPM /nt
--- NOTE | 2017-12-08 12:50 | CON ---
[address] [address] CONSULTATION Name: SCOTTY QUINTANILLA Room: [address] IN .R.#: [id number] Admission: 11/30/17 Attend Phys: Ko Anguiano Discharge: Date of : 71 Report #: [id number] THIS REPORT FOR: //name// CC: ANGELIQUE physician/PCP Amadou Dewey DATE OF SERVICE: 11/30/2017 REASON FOR CONSULTATION: Osteomyelitis, right second toe. CHIEF COMPLAINT AND HISTORY OF PRESENT ILLNESS: The patient is a 42-year-old female, known to me from prior diabetic foot surgery. She has a longstanding ulceration of the distal aspect of the right second toe with rigid hammertoe deformity. The toe was becoming increasingly swollen with wound to the distal aspect. She was admitted through the emergency department today. Her blood cultures are pending. She is on parenteral vancomycin, cefepime, and ertapenem. She is complaining of fevers and chills since Wednesday, 11/26. She also has left hip pain. She had partial right first ray resection in 10/2006, which I performed. Prior arterial Duplex had triphasic waveforms suggestive of adequate arterial flow. Wound culture of right second toe pending. LABORATORY DATA: WBC 12.1, RBC 3.95, hemoglobin 11.7, hematocrit 34.3, platelets 182. BUN 9, creatinine 0.6, glucose 400, albumin 2.5. PHYSICAL EXAMINATION: VITAL SIGNS: Temperature 98.2, pulse 74, respirations 17, blood pressure 120/61. EXTREMITIES: Right second toe is very edematous and swollen with rigid hammertoe deformity. There is a wound to the distal aspect of the toe roughly 0.2 x 0.2 x 0.3 cm. I am unable to express any drainage. The inflammation is localized to the toe, which has destruction of the distal aspect of the phalanx on the x-rays. She has a well-healed surgical incision where the partial first ray resection was previously performed. She has palpable dorsal right. She has palpable right dorsalis pedis and posterior tibial pulses. No pallor or cyanosis noted. No signs of acute vascular embarrassment. IMPRESSION: Osteomyelitis, right second toe, distal phalanx. PLAN: I recommend amputation of the right second toe at the MTP joint with primary closure. We will keep her n.p.o. past midnight and plan surgery tomorrow. <ELECTRONICALLY SIGNED> By: Paulo Sutton DPM 12/08/17 1250 1647 [id number] Sutton DPM /claudine
--- NOTE | 2017-12-08 12:50 | OP ---
[facility] [address] [place] [address] OPERATIVE REPORT Name: SCOTTY QUINTANILLA Room: [address] IN .R.#: [id number] Admission: 11/30/17 Attend Phys: Ko Anguiano Discharge: Date of : 71 Report #: [id number] THIS REPORT FOR: //name// CC: ANGELIQUE physician/PCP Amadou Dewey DATE OF SERVICE: 12/01/2017 SURGEON: Paulo Sutton DPM. PREOPERATIVE DIAGNOSIS: Osteomyelitis, right distal second toe. POSTOPERATIVE DIAGNOSIS: Osteomyelitis, right distal second toe. PROCEDURE: Amputation of right second toe at MTP joint with primary closure. ANESTHESIA: MAC. INJECTABLES: 16 mL of a 1:1 mixture of 0.5% Marcaine plain and 1% lidocaine plain. ESTIMATED BLOOD LOSS: Minimal. SUTURES: 3-0 nylon. SPECIMEN: Right second toe. CULTURES: Soft tissue, aerobic and anaerobic. ESTIMATED BLOOD LOSS: Minimal. COMPLICATIONS: None. DESCRIPTION OF PROCEDURE: The patient was brought to the OR and placed on the table supine with induction of MAC anesthesia. A well-padded left ankle pneumatic tourniquet was placed and local anesthetic block was given to the distal foot and the extremity was prepped and draped aseptically. After exsanguination, the tourniquet was inflated. A #15 blade was used to create a tennis racket incision around the right second MTP joint with layered anatomic dissection used to disarticulate the second toe at the MTP joint. Electrocautery was utilized for hemostasis. The skin was remodeled and the wound was flushed with sterile saline. A fine-tipped electrocautery was utilized for intraoperative hemostasis. The skin was closed with 3-0 nylon in an interrupted fashion. The tourniquet was deflated with normal vascular return. Sterile compressive bandage with Betadine-soaked Adaptic, fluffs, ABD, Kerlix and Edilson were applied. A customer development representative portion [place] [phone] OPERATIVE REPORT Name: SCOTTY QUINTANILLA Room: [address] IN .R.#: [id number] Admission: 11/30/17 Attend Phys: Ko Anguiano Discharge: Date of : 71 Report #: [id number] for aerobic and anaerobic tissue cultures. The remaining second toe was sent for surgical pathology. The patient left the OR alert and oriented with no pain or complications noted. <ELECTRONICALLY SIGNED> By: Paulo Sutton DPM 12/08/17 1250 1923 1945Paulo Sutton DPM /claudine
--- NOTE | 2017-12-08 17:05 | NUR ---
PATIENT A&OX4, RA, IV RIGHT UPPER ARM FLUIDS INFUSSING. UP STAND BY ASSISTX1, STEADY GAIT. BULK DRSG TO RIGHT HAND, BULK DRSG TO RIGHT FOOT, SEEN BY PHYSICIAN AND REDRESSED. C/O PAIN TO RIGHT HAND, RIGHT FOOT, LEFT HIP, RELIEF WITH MEDICATION. NO OTHER CONCERNS AT THIS TIME. APPROPRIATE AND COOPORATIVE WITH CARE.
[2017-12-08 20:15] VITALS: BP 139/73
[2017-12-08 23:51] VITALS: BP 136/72
[2017-12-09 04:27] VITALS: BP 144/67
--- NOTE | 2017-12-09 05:44 | NUR ---
PT SLEPT MOST OF SHIFT. ASSESSMENT DOCUMENTED. MEDS GIVEN PER E-MAR. MIDLINE PATENT, FLUIDS INFUSING. PAIN MEDS GIVEN PER E-MAR WITH RELIEF. DRESSINGS C/D/I. WILL CONTINUE WITH PLAN OF CARE.
[2017-12-09 09:10] VITALS: BP 130/85
--- NOTE | 2017-12-09 15:42 | NUR ---
CONSULTED FOR MIDLINE NOT FLUSHING. MIDLINE DRESSING CHANGED AND LINE RETRACTED 2CM. LINE FLUSHING WITH EASE AND GOOD BRISK BLOOD RETURN NOTED. PT TOLERATED WELL. PRIMARY NURSING AWARE.
[2017-12-09 16:00] VITALS: BP 151/71
--- NOTE | 2017-12-09 16:32 | NUR ---
PATIENT REMAINS ON SCHED IV ABX. DRESSING TO RIGHT HAND AND FOOT REMAIN D/I. RIGHT HAND REMAINS ELEVATED. PRN VICODIN GIVEN PER APR ORDERS X 1, GOOD RELIEF NOTED. UP TO BATHROOM TO CLEAN UP THIS AM, OT SIGNED OFF PATIENT. DISCHARGE PLANNING.
[2017-12-09 20:00] VITALS: BP 141/71
[2017-12-10 04:44] LABS: ABSOLUTE EOSINOPHILS 0.2 thou/uL (0.0-0.7); ABSOLUTE LYMPHOCYTES 1.8 thou/uL (0.8-5.3); ABSOLUTE MONOCYTES 0.8 thou/uL (0.0-1.2); ABSOLUTE NEUTROPHILS 5.3 thou/uL (1.6-8.1); BASOPHILS 0.3 %; EOSINOPHILS 2.1 %; HEMATOCRIT 27.8 % (37.0-47.0); HEMOGLOBIN 9.4 gm/dL (12.0-15.0); LYMPHOCYTES 22.8 %; MCH 29.2 pg (26.0-34.0); MCHC 33.9 g/dL (28.0-37.0); MCV 86.3 fL (80.0-100.0); MONOCYTES 9.9 %; NUCLEATED RBCS 0 /100WBC; PLATELET COUNT* 505 thou/uL (150-400); POLYS 64.9 %; RBC 3.22 mil/uL (4.20-5.00); RDW-CV 13.2 % (10.5-14.5); WBC 8.1 thou/uL (4.0-11.0)
[2017-12-10 04:56] LABS: CALCIUM 8.5 mg/dL (8.5-10.1); CREATININE 0.6 mg/dL (0.6-1.3); POTASSIUM 4.5 mmol/L (3.5-5.1)
--- NOTE | 2017-12-10 06:06 | NUR ---
PT SLEPT MOST OF SHIFT. ASSESSMENT DOCUMENTED. MEDS GIVEN PER E-MAR. MIDLINE PATENT. PAIN MEDS GIVEN PER PATIENT REQUEST. DRESSINGS REMAINED C/D/I. PT EXPRESSED NO CONCERNS AT THIS TIME, WILL CONTINUE WITH PLAN OF CARE.
[2017-12-10 09:00] VITALS: BP 130/78
[2017-12-10 10:52] VITALS: BP 130/78
[2017-12-10 11:56] VITALS: BP 153/82
[2017-12-10] MEDS ORDERED: VITAMINC500 PO (14:10)
[2017-12-10] MEDS ORDERED: NORCO 5-325 TA1 EACH PO (14:10)
[2017-12-10] MEDS ORDERED: VITAMIN D1000 UNI1 PO (14:11)
[2017-12-10] MEDS ORDERED: CENTRUM SILVER1 EAC2 PO (14:11)
[2017-12-10] MEDS ORDERED: ZINC SULFATE 2220 M1 PO (14:12)
[2017-12-10] MEDS ORDERED: KEFLEX500 M1 PO (14:13)
[2017-12-10] MEDS ORDERED: RIFAMPIN 300 M300 M1 PO (14:14)
[2017-12-10 14:15] VITALS: BP 130/78
--- NOTE | 2017-12-10 17:01 | NUR ---
PATIENT DISCHARGED TO HOME AT THIS TIME. INSTRUCTED ON DRESSING CHANGES. MIDLINE DC'D PER PROTOCOL. PRN VICODIN GIVEN X [address] HEATON HERE THIS AM AND DRESSING TO RIGHT FOOT CHANGED. PHOTO TAKEN OF RIGHT FOOT PER PROTOCOL. VERBALIZES UNDERSTANDING OF PAPERWORK AND SCRIPTS. PATIENT TAKEN OUT VIA WHEELCHAIR WITH ALL BELONGINGS AND WOUND CARE ITEMS.
== END 2017-12-10 17:06 | disposition home or self-care (01) | DRG 464 ==
LOC: M.ERS 06:24 → M.TBA-ER 08:54 → M.3W 08:54 → M.ERS 09:49 → M.3W 10:08
PROVIDERS: Emergency Medicine; Family Medicine; ADMIT Internal Medicine
DX: M00.9 Pyogenic arthritis, unspecified (principal); M86.8X7 Other osteomyelitis, ankle and foot; E87.1 Hypo-osmolality and hyponatremia; L02.611 Cutaneous abscess of right foot; L03.113 Cellulitis of right upper limb; E11.69 Type 2 diabetes mellitus with other specified complication; M20.41 Other hammer toe(s) (acquired), right foot; L03.031 Cellulitis of right toe; R59.1 Generalized enlarged lymph nodes; E11.621 Type 2 diabetes mellitus with foot ulcer; L97.519 Non-pressure chronic ulcer of other part of right foot with unspecified severity; E11.42 Type 2 diabetes mellitus with diabetic polyneuropathy; M65.841 Other synovitis and tenosynovitis, right hand; E11.65 Type 2 diabetes mellitus with hyperglycemia; F17.210 Nicotine dependence, cigarettes, uncomplicated; S76.012A Strain of muscle, fascia and tendon of left hip, initial encounter; M71.551 Other bursitis, not elsewhere classified, right hip; B95.61 Methicillin susceptible Staphylococcus aureus infection as the cause of diseases classified elsewhere; B95.1 Streptococcus, group B, as the cause of diseases classified elsewhere; X58.XXXA Exposure to other specified factors, initial encounter; Y93.89 Activity, other specified; Q65.89 Other specified congenital deformities of hip; Y92.89 Other specified places as the place of occurrence of the external cause; Y99.8 Other external cause status; Z79.4 Long term (current) use of insulin; Z79.899 Other long term (current) drug therapy; Z88.8 Allergy status to other drugs, medicaments and biological substances; Z82.49 Family history of ischemic heart disease and other diseases of the circulatory system; Z80.8 Family history of malignant neoplasm of other organs or systems; Z83.3 Family history of diabetes mellitus

== ENCOUNTER 2017-12-12 21:50 | Inpatient (IN) | payer OTHER ==
[~2017-12-12] VITALS: Ht 165.1 cm; Wt 86.2 kg
[~2017-12-12 21:50] MED LIST changes: +CENTRUM SILVER1 EAC2 PO; +NOVOLIN N100 UNIT/3 SUBQ; +RIFAMPIN 300 M300 M1 PO; +VITAMIN D1000 UNI1 PO; +VITAMINC500 PO; +ZINC SULFATE 2220 M1 PO
[2017-12-12 21:55] VITALS: BP 179/108
[2017-12-12 22:55] LABS: ABSOLUTE BASOPHILS 0.1 thou/uL (0.0-0.2); ABSOLUTE EOSINOPHILS 0.1 thou/uL (0.0-0.7); ABSOLUTE LYMPHOCYTES 2.5 thou/uL (0.8-5.3); ABSOLUTE MONOCYTES 0.8 thou/uL (0.0-1.2); BASOPHILS 0.6 %; EOSINOPHILS 1.2 %; HEMATOCRIT 31.7 % (37.0-47.0); HEMOGLOBIN 10.7 gm/dL (12.0-15.0); LYMPHOCYTES 23.7 %; MCH 28.6 pg (26.0-34.0); MCHC 33.6 g/dL (28.0-37.0); MCV 85.1 fL (80.0-100.0); MONOCYTES 7.6 %; MPV 7.5 fl. (7.2-11.1); NUCLEATED RBCS 0 /100WBC; POLYS 66.9 %; RBC 3.73 mil/uL (4.20-5.00); RDW-CV 13.3 % (10.5-14.5); WBC 10.4 thou/uL (4.0-11.0)
[2017-12-12 22:56] LABS: PLATELET COUNT* 672 thou/uL (150-400)
[2017-12-12 23:03] LABS: CALCIUM 9.3 mg/dL (8.5-10.1); CREATININE 0.7 mg/dL (0.6-1.3); POTASSIUM 4.4 mmol/L (3.5-5.1)
[2017-12-12 23:06] LABS: APTT 33.6 Seconds (25.0-31.3); INR 1.1; PROTIME 11.1 Seconds (9.20-11.50)
[2017-12-12 23:08] LABS: ALBUMIN 2.6 g/dL (3.4-5.0); TOTAL BILIRUBIN 0.2 mg/dL (<0.1-1.0); TOTAL PROTEIN 8.1 g/dL (6.4-8.2)
[2017-12-12 23:50] VITALS: BP 168/77
[2017-12-13] VITALS: BP 140/76
[2017-12-13] MEDS ORDERED: LANTUS100 UNIT/M SUBQ (00:54)
[2017-12-13 08:25] VITALS: BP 136/70
[2017-12-13 16:00] VITALS: BP 120/62
[2017-12-13 23:50] VITALS: BP 134/69
[2017-12-14 04:43] LABS: ABSOLUTE BASOPHILS 0.1 thou/uL (0.0-0.2); ABSOLUTE EOSINOPHILS 0.2 thou/uL (0.0-0.7); ABSOLUTE LYMPHOCYTES 2.7 thou/uL (0.8-5.3); ABSOLUTE MONOCYTES 0.8 thou/uL (0.0-1.2); ABSOLUTE NEUTROPHILS 5.3 thou/uL (1.6-8.1); BASOPHILS 0.6 %; EOSINOPHILS 2.4 %; HEMATOCRIT 30.6 % (37.0-47.0); HEMOGLOBIN 10.4 gm/dL (12.0-15.0); LYMPHOCYTES 29.7 %; MCH 29.1 pg (26.0-34.0); MCHC 34.1 g/dL (28.0-37.0); MCV 85.3 fL (80.0-100.0); MONOCYTES 9.1 %; MPV 7.5 fl. (7.2-11.1); NUCLEATED RBCS 0 /100WBC; POLYS 58.2 %; RBC 3.59 mil/uL (4.20-5.00); RDW-CV 13.4 % (10.5-14.5)
[2017-12-14 05:00] LABS: CALCIUM 8.9 mg/dL (8.5-10.1); CREATININE 0.7 mg/dL (0.6-1.3); POTASSIUM 4.5 mmol/L (3.5-5.1)
[2017-12-14 05:05] LABS: PLATELET COUNT* 565 thou/uL (150-400)
[2017-12-14 08:50] VITALS: BP 152/79
[2017-12-14 13:17] VITALS: BP 152/79
== END 2017-12-14 14:23 | disposition home or self-care (01) | DRG 863 ==
LOC: M.ERS 21:50 → M.TBA-ER 22:40 → M.3W 22:40
PROVIDERS: Family Medicine; ADMIT Internal Medicine
DX: T81.40XA Infection following a procedure, unspecified, initial encounter (principal); L03.113 Cellulitis of right upper limb; M00.9 Pyogenic arthritis, unspecified; F17.210 Nicotine dependence, cigarettes, uncomplicated; E11.621 Type 2 diabetes mellitus with foot ulcer; E11.65 Type 2 diabetes mellitus with hyperglycemia; Y83.8 Other surgical procedures as the cause of abnormal reaction of the patient, or of later complication, without mention of misadventure at the time of the procedure; Y92.89 Other specified places as the place of occurrence of the external cause; Z79.4 Long term (current) use of insulin; Z89.421 Acquired absence of other right toe(s); Z87.81 Personal history of (healed) traumatic fracture; Z79.899 Other long term (current) drug therapy; Z88.8 Allergy status to other drugs, medicaments and biological substances; Z82.49 Family history of ischemic heart disease and other diseases of the circulatory system; Z80.8 Family history of malignant neoplasm of other organs or systems; Z83.3 Family history of diabetes mellitus